=== PATIENT | female | born 1945 | race Asian ===

== ENCOUNTER 2023-02-18 22:23 | Emergency (ER) | payer BC, OTHER ==
[2023-02-18 22:29] VITALS: TEMP 98.4; BMI 28.7
[2023-02-18] MEDS ORDERED: FAMOTIDINE 20 MG/50 ML IVPB 20 MG/50 ML MG IVPB ONE ×2 (23:02→23:43)
[2023-02-18] MEDS ORDERED: methylPREDNISolone NA SUCC 125 MG/2 ML VIAL IVPUSH ONE (23:09)
[2023-02-18] MEDS ORDERED: methylPREDNISolone NA SUCC 125 MG/2 ML VIAL ONE (23:43)
[2023-02-18 23:45] LABS: BASO % 0.1 % (0-2.0); EOS % 0.8 % (0-4.5); HEMATOCRIT 39.5 % (32.4-45.2); HEMOGLOBIN 13.9 GM/dL (10.7-15.3); LYMPH % 18.5 % (8-40); MCH 29.9 pg (25.7-33.7); MCHC 35.1 g/dl (32.0-36.0); MEAN CELL VOLUME 85.2 fl (80-96); MEAN PLT VOLUME 7.3 fl (7.5-11.1); MONO % 4.8 % (3.8-10.2); NEUT % 75.8 % (42.8-82.8); PLATELET COUNT 178 10^3/uL (134-434); RBC 4.64 M/mm3 (3.60-5.2)
[2023-02-18 23:59] VITALS: BP 143/72; PULSE 70; RESP 19
[2023-02-19 00:27] LABS: POTASSIUM 3.3 mmol/L (3.5-5.1)
[2023-02-19 00:29] LABS: ALBUMIN 3.9 g/dl (3.4-5.0); BLOOD UREA NITROGEN 11.4 mg/dL (7-18); CALCIUM 9.1 mg/dL (8.5-10.1)
[2023-02-19 00:32] LABS: CREATININE 0.9 mg/dL (0.55-1.3)
[2023-02-19 00:34] LABS: BILIRUBIN,TOTAL 0.7 mg/dL (0.2-1); TOT PROT 7.2 g/dl (6.4-8.2)
[2023-02-19] MEDS ORDERED: POTASSIUM CHLORIDE ORAL LIQUID 20 MEQ/15 ML PO ONE (01:26)
[2023-02-19] MEDS ORDERED: POTASSIUM CHLORIDE ORAL LIQUID 20 MEQ/15 ML ONE (01:28)
== END 2023-02-19 02:11 | disposition home or self-care (01) ==
LOC: JER 22:23
PROC: 3E033GC Introduction of Other Therapeutic Substance into Peripheral Vein, Percutaneous Approach (ICD-10-PCS; principal; 2023-02-18)
PROC: 3E033GC Introduction of Other Therapeutic Substance into Peripheral Vein, Percutaneous Approach (ICD-10-PCS; 2023-02-18)
PROC: 3E033GC Introduction of Other Therapeutic Substance into Peripheral Vein, Percutaneous Approach (ICD-10-PCS; 2023-02-18)
DX: R21 Rash and other nonspecific skin eruption (principal); L29.9 Pruritus, unspecified; L50.9 Urticaria, unspecified; L53.9 Erythematous condition, unspecified
CPT/HCPCS: 36415; 80053; 85025; 96365; 96375; 99285-25